=== PATIENT | male | born 1955 | race Caucasian/White ===

== ENCOUNTER 2016-11-04 05:39 | Day surgery (SDC) | payer OTHER ==
[~2016-11-04] VITALS: Ht 185.4 cm; Wt 190.1 kg
[2016-11-04 06:26] VITALS: BP 146/74; PULSE 70; RESP 18; TEMP 98.4; O2SAT 96
[2016-11-04 06:55] LABS: AUTOMATED NEUTROPHIL # 3.1 TH/MM3 (1.8-7.7); BASOPHIL % 0.7 % (0.0-2.0); EOSINOPHIL # 0.2 TH/MM3 (0-0.4); EOSINOPHIL % 4.2 % (0.0-4.0); HEMATOCRIT 40.1 % (39.0-51.0); HEMO FLAGS DIFF FINAL; LYMPH % 25.6 % (9.0-44.0); LYMPHOCYTE # 1.3 TH/MM3 (1.0-4.8); MEAN CORPUSCULAR HEMOGLOBIN 30.7 PG (27.0-34.0); MEAN CORPUSCULAR HGB CONC 34.1 % (32.0-36.0); MONO % 9.8 % (0.0-8.0); NEUT % 59.7 % (16.0-70.0); PLATELET COUNT 178 TH/MM3 (150-450); RED BLOOD COUNT 4.45 MIL/MM3 (4.50-5.90); RED CELL DISTRIBUTION WIDTH 14.9 % (11.6-17.2); WHITE BLOOD COUNT 5.1 TH/MM3 (4.0-11.0)
[2016-11-04] MEDS ORDERED: DICL75TA PO (07:06)
[2016-11-04] MEDS ORDERED: VALS160T4 PO (07:06)
[2016-11-04] MEDS ORDERED: ASPI81TA67 PO (07:06)
[2016-11-04] MEDS ORDERED: PRAV20TA2 PO (07:06)
[2016-11-04] MEDS ORDERED: ALLO300T2 PO (07:06)
[2016-11-04] MEDS ORDERED: NIAC500T52 PO (07:06)
[2016-11-04 07:08] LABS: APTT (PATIENT) 27.3 SEC (24.3-30.1); PROTHROMBIN TIME - PATIENT 11.1 SEC (9.8-11.6)
[2016-11-04 07:28] LABS: BICARBONATE 27.6 MEQ/L (21.0-32.0); POTASSIUM 3.9 MEQ/L (3.5-5.1)
--- NOTE | 2016-11-04 07:31 | EKG ---
Date Performed: 11/04/2016 Time Performed: 06:37:00 PTAGE: 61 years EKG: Sinus rhythm with borderline 1st degree A-V block. Poor R wave progression - probable normal variant Borderline E CG NO PREVIOUS TRACING DOCTOR: Sergei Peres Interpretating Date/Time 11/04/2016 07:31:27
[2016-11-04] MEDS ORDERED: HEPARIN-NS/PF INJ 500 ML ONE (09:02)
[2016-11-04] MEDS ORDERED: MIDAZOLAM HCL 5 MG/5 ML VIAL ONE (09:03)
--- NOTE | 2016-11-04 09:50 | CATHPROC ---
[employer] HIS Report Study Information Study Number Scheduled Start Study Start 0927-17 11/04/2016 Nov 04 2016 8:51AM Referring Institution Admit Source Facility Department 1 Other [facility] - Network Operations Technician Physician and Clinical Staff Initial Lukas Mart Passenger Car Inspector [employer]ak RN, Lane Matta RCIS(BS) Scrub Berta Kinney,RT(R) Procedures Performed Procedure Location (Site) Vessel Name Angiogram LV LV Ventricle Coronary Angiograms LCA Left Coronary Coronary Angiograms RCA Right Coronary L Heart Cath Equipment Time Data Migration Lead Description Size Mfg Part Number Used/Scraped TRANSDUCER, TRUWAVE 08:54 Buy.On.Social * [id number] Used W/STOCKCOCK [id number] *[id number] [id number] *[id number] [id number] *[id number] 08:54 MEDLINE INDUSTRIES PACK, CCL CUSTOM * Used *[id number] 08:54 MEDLINE PACER PEN, SKIN DUAL W/ RULER * [id number] Used 08:54 Payfirma WIRE, 3MMJ .035 180CM 180CM [id number] Used PROBE COVER, STERILE 08:54 Cool Containers * [id number] Used ULTRASOUND W/ GEL [id number] 08:54 NAMIC MANIFOLD, 4 PORT * Used *[id number] 08:54 NAMIC TUBING, HIGH PRESSURE 48" 48" Used *[id number] 08:54 NYCOMED OMNIPAQUE, 350 MG, 100ML 100ML [id number] Used 09:32 NYCOMED OMNIPAQUE, 350 MG, 50ML 50ML [id number] Used 08:54 VERDIN MEDICAL BLANKET,WARM AIR CCL * [id number] Used 08:54 TERUMO MEDICAL SHEATH, FR5 TERUMO (10CM) FR 5 [id number] Used History: Current Medications Medication Dosage/Unit Route Frequency Last Date/Time Taken ASA Statins (any) Allopurinol History: Allergies Allergy Reaction No Known Allergies History: Risk Factors Family History of Hypertension Dyslipidemia Previous [place] Previous Heart Failure Premature CAD Yes Yes Yes No No Prior Valve Prior PCI Prior CABG Surgery No No No Cerebrovascular Peripheral Artery Chronic Lung On Dialysis Diabetes Disease Disease Disease No No No No No History: Stress Tests Stress or Imaging Studies Performed Yes Standard Exercise Stress Test No Stress Echo No Stress Test SPECT Stress Test SPECT Result Stress Test SPECT Ischemia Risk/Extent Yes Positive Intermediate Stress Test CMR No Cardiac CTA Coronary Calcium Score No No History: Other Current Smoker No Labs Hgb (g/dl) Hct (%) RBC (MIL/MM3) WBC (l/cumm) Platelets (thousands) 12.00-18.00 37.00-55.00 4.80-6.20 4.80-10.80 140.00-450.00 13.7 40.1 4.4 5.1 178 Glucose (mg/dl) BUN (mg/dl) Creatinine (mg/dl) BUN:Creatinine (1:x) 60.00-110.00 8.00-20.00 0.10-9.00 10.00-20.00 94 17 0.8 21.3 Na (meq/l) K (meq/l) Cl (meq/l) CO2 (mmol/L) Ca (mg/dl) 138.00-146.00 3.80-5.10 101.00-111.00 23.00-30.00 9.00-10.50 144 3.9 109 27.6 8.8 PT (sec) PTT (sec) INR (PTT:PT) 9.40-11.40 25.10-32.70 0.50-2.00 11.1 27.3 1 CPK-MB (ng/ML) 0.00-7.00 Not Drawn Medication Medication Total Dose (Bolus/Oral) Medication Total Dosage/Unit 1% XYLOCAINE 20 mL FENTANYL 50 mcg VERSED 3 mg Medications (Bolus/Oral) Medication Time Given Dosage/Unit Administered By Reason VERSED 11/04/2016 9:27:02 AM 2 mg Mario Candelario RN 2 mg VERSED given in lab by Mario Candelario RN in Left Antecubital via Peripheral IV. 1% XYLOCAINE 11/04/2016 9:27:34 AM 20 mL Lukas Fernandez 20 mL 1% XYLOCAINE given in lab by Lukas Fernandez in Right Groin via Subcutaneous. FENTANYL 11/04/2016 9:28:02 AM 50 mcg Mario Candelario RN 50 mcg FENTANYL given in lab by Mario Candelario RN in Left Antecubital via Peripheral IV. VERSED 11/04/2016 9:29:38 AM 1 mg Mario Candelario RN 1 mg VERSED given in lab by Mario Candelario RN in Left Antecubital via Peripheral IV. Medication (Drip) Medication Time Given Dosage/Unit Concentration/Unit Diluent (ml) Solution IV Solutions 11/04/2016 8:58:54 AM 0 mL (IV) 500 NaCl .9 IV Solutions given in lab by Mario Candelario RN in Left Antecubital via Peripheral IV. Pump/Drip Flow = 20 ml/hr using NaCl .9. Initial Case Assessment Cardiovascular HR Rhythm NIBP Chest Pain 58 sinus 156/91 0 Edema Present Skin color Skin None Normal Warm Dry Circulatory - Right Pulses Dorsalis Pedis Femoral 1 1 Scale (0,1,2,3,4,d) Circulatory - Left Pulses Dorsalis Pedis Femoral 1 1 Scale (0,1,2,3,4,d) Neurological State Oriented to time-place- Alert Moves all extremities person Respiration - General SpO2 (%) O2 (lpm) 99 2 Initial Case Assessment Cardiovascular HR Rhythm NIBP Chest Pain 69 sinus 155/94 0 Edema Present Skin color Skin None Normal Warm Dry Circulatory - Right Pulses Dorsalis Pedis Femoral 1 1 Scale (0,1,2,3,4,d) Circulatory - Left Pulses Dorsalis Pedis Femoral 1 1 Scale (0,1,2,3,4,d) Neurological State Oriented to time-place- Alert Moves all extremities person Respiration - General SpO2 (%) O2 (lpm) 99 2 Chronological Log Time Study Chronological Log 8:55:07 Patient arrived via Bed. 8:55:08 Patient Name, D.O.B, / Armband Verified By R.N. 8:55:09 Consent signed by the physician and the patient and verified by the Network Operations Technician staff. 8:55:10 Pre-op and post- op instructions given; patient acknowledges understanding of instructions. 8:55:11 Verbal Stimulation=2 Physical Stimulation=2 Airway=2 Respiration=2 TOTAL=8. (0=absent, 1=li mited, 2=present) 8:58:16 Presedation assessment performed by Network Operations Technician RN. 8:58:22 Patient has been NPO for More than 6Hrs. 8:58:23 Skin Breakdown- none per patient. 8:58:34 Patient Warmer Placed on the Table. 8:58:37 Alysa Prominences Protected 8:58:38 A # 20 IV was noted in the Antecubital (left). Grade = 0 IV Solutions given in lab by Mario Candelario RN in Left Antecubital via Peripheral IV. Pump/Drip F low = 20 ml/hr using NaCl 8:58:54 .9. 8:59:20 History and physical on the chart or being dictated. Assessment: Initial Case, HR=58 BPM, Rhythm=sinus, MDFU=523/91 mmhg, Chest Pain=0, Edema=None, Color=Normal, Skin = Warm, Dry Right Pulses: Jaya Ped=1, Femoral=1 8:59:21 Left Pulses: Jaya Ped=1, Femoral=1 Neurological: State=Alert, Ox3, GORE Respiration: SpO2=99 %, O2=2 lpm Vitals capture started with the following parameters, Patient=Adult, Interval=5 min, Initial Pre xkejc=587 mmHg, 8:59:25 Deflation Rate=5 mmHg 9:00:42 OXNU=523/83 mmhg, SpO2=99.0 %, Pain=0, Dinorah=10, Moreira=2 9:05:43 HR=59 bpm, GKSK=527/91 mmhg, BmT2=587.0 %, Resp=14 B/min, Pain=0, Dinorah=10, Moreira=2 9:06:17 Reference ECG taken 9:10:11 HR=58 bpm, ZRAU=128/91 mmhg, SpO2=99.0 %, Resp=15 B/min, Pain=0, Dinorah=10, Moreira=2 9:10:49 Right groin prepped with 2% chlorhexidine, and with a 3 min. waiting time. 9:13:12 MD arrived. 9:15:08 FB=477 bpm, JPFK=837/95 mmhg, SpO2=99.0 %, Resp=18 B/min, Pain=0, Dinorah=10, Moreira=2 9:15:52 Contrast Scanned 9:15:53 Immediate Presedation assesment performed by physician. 9:18:26 Pressure channel 1 zeroed. 9:20:42 HR=58 bpm, RXWY=628/88 mmhg, SpO2=99.0 %, Resp=10 B/min, Pain=0, Dinorah=10, Moreira=2 9:25:08 HR=59 bpm, TIJS=394/87 mmhg, SpO2=98.0 %, Resp=16 B/min, Pain=0, Dinorah=10, Moreira=2 9:27:02 2 mg VERSED given in lab by Mario Candelario RN in Left Antecubital via Peripheral IV. Time Out. Correct patient, correct procedure,correct physician, ,power injector loaded with cont rast with surgical team 9:27:09 present. Time Out Concurred by , individual staff in procedure 9:27:25 Case Start 9::26 Verbal Stimulation=2 Physical Stimulation=2 Airway=2 Respiration=2 TOTAL=8. (0=absent, 1=solomon ited, 2=present) 9:27:34 20 mL 1% XYLOCAINE given in lab by Lukas Fernandez in Right Groin via Subcutaneous. 9:28:02 50 mcg FENTANYL given in lab by Mario Candelario RN in Left Antecubital via Peripheral IV. 9::45 Access site was Right Femoral Artery. 9:28:51 A SHEATH, FR5 TERUMO (10CM) FR 5 was advanced into the Fem Art (right) using the Percutaneou s technique. A PIGTAIL ANG. INFINITI CATHETER FR 5 was advanced over a wire. OMNIPAQUE, 350 MG, 100ML 100ML w as used 9:28:58 for injections. 9:29:38 1 mg VERSED given in lab by Mario Candelario RN in Left Antecubital via Peripheral IV. 9:30:07 HR=60 bpm, DYCF=836/93 mmhg, SpO2=97.0 %, Resp=15 B/min, Pain=0, Dinorah=10, Moreira=2 9:31:27 The LV was injected at 12 cc/sec for a total of 36. OMNIPAQUE, 350 MG, 50ML 50ML used. Recorded Pressure: LV, HR=61, Condition=Condition 1 9:32:36 (Left Ventricle) LV 106/12/17 Recorded Pressure: LV, Ao, HR=61, Condition=Condition 1 9:32:40 (Left Ventricle) LV 106/13/17, (Aorta) Ao 109/71/90 9:33:03 Catheter was removed A JL 4.0 INFINITI CATHETER FR 5 was advanced over a wire. OMNIPAQUE, 350 MG, 100ML 100ML was use d for 9:33:03 injections. 9:35:02 The LCA was injected and visualized at various angles. OMNIPAQUE, 350 MG, 100ML 100ML used. 9:35:10 HR=62 bpm, ZGYK=644/87 mmhg, SpO2=96.0 %, Resp=16 B/min, Pain=0, Dinorah=10, Moreira=2 9:37:18 Catheter was removed A AR MOD INFINITI CATHETER FR 5 was advanced over a wire. OMNIPAQUE, 350 MG, 100ML 100ML was use d for 9:37:20 injections. 9:38:38 The RCA was injected and visualized at various angles. OMNIPAQUE, 350 MG, 100ML 100ML used. 9:39:28 Catheter was removed 9:39:41 Case End 9:40:09 HR=75 bpm, ZQWV=591/94 mmhg, SpO2=97.0 %, Resp=21 B/min, Pain=0, Dinorah=10, Moreira=2 Assessment: Initial Case, HR=69 BPM, Rhythm=sinus, EUKA=066/94 mmhg, Chest Pain=0, Edema=None, Color=Normal, Skin = Warm, Dry Right Pulses: Jaya Ped=1, Femoral=1 9:42:08 Left Pulses: Jaya Ped=1, Femoral=1 Neurological: State=Alert, Ox3, GORE Respiration: SpO2=99 %, O2=2 lpm 9:42:24 Sheath(s) left in place, will be removed in Holding Area 9:42:25 Sterile dressing applied to site 9:42:26 No case complications noted. 9:42:27 Cine recording checked. 9:42:29 Bedside Report will be given. 9:42:32 Verbal Stimulation=2 Physical Stimulation=2 Airway=2 Respiration=2 TOTAL=8. (0=absent, 1=l imited, 2=present) 9:42:40 A Left Heart Cath was performed. 9:46:03 Vitals capture stopped. 9:47:47 Patient moved to carrier clinic End Study - Contrast Media Used In Study Contrast Total Opened (mL) Total Used (mL) Total Wasted (mL) Omnipaque 70 70 0 End Study - Maximum Contrast Load Max Contrast Load (mL) 1188.1 End Study - Radiation Exposure Fluoro Time (minutes) 2.1 End Study - Patient Disposition Complications Transferred To Interventional Outcome No Network Operations Technician Holding No attempt made
[2016-11-04] MEDS ORDERED: IOHEXOL 350 MG/ML 100 ML BTL (for Cath Lab) OTHER ONE (10:13)
--- NOTE | 2016-11-05 19:19 | MA ---
cc: DUANE GANNON DATE: 11/05/2016. PROCEDURES PERFORMED: 1. Retrograde left heart catheterization with left ventriculography and selective coronary angiography. 2. Moderate sedation. ACCESS SITE: Right femoral artery. EQUIPMENT USED: 5-Rwandan pigtail catheter. 5-[place]an JL4 and AR modified coronary catheters. MEDICATIONS: Versed IV. Fentanyl IV. CONTRAST: Omnipaque 70 cc. COMPLICATIONS: None. METHOD OF HEMOSTASIS: Manual compression. ESTIMATED BLOOD LOSS: Less than 10 cc. INDICATIONS FOR THE PROCEDURE: Class II angina, intermediate probability nuclear myocardial perfusion study. RESULTS OF HEMODYNAMICS: Heart rate 70 beats per minute. Left ventricular end diastolic pressure 13 mmHg. Left ventricle 110/13. Aorta 110/71/90. LEFT VENTRICULOGRAPHY Left ventricular ejection fraction 60%. Wall motion normal. No mitral regurgitation. CORONARY ANGIOGRAPHY: The left main coronary artery patent The left anterior descending has 20% stenosis in the proximal portion. D1 patent. D2 patent. D3 patent. Left circumflex patent. OM #1 patent. OM #2 patent. Right coronary artery is patent. PDA has 20% stenosis in the mid portion. PLV patent. DIAGNOSIS: 1. Mild nonobstructive coronary artery disease. 2. Preserved left ventricular systolic function. DISPOSITION: Mr. Rossi can be reassured about his cardiac status. His study revealed mild nonobstructive coronary artery disease and preserved left ventricular systolic function. We will continue aggressive modification of his cardiac risk factors. He will be discharged home later today. I will see him back for followup in our office after discharge. MD BARRY Glez/ANGELIC /9:52 AM /7:11 PM POLY
== END 2016-11-04 15:19 | disposition home or self-care (01) ==
LOC: HDOC 05:39 → HDIC 05:39 → HDOC 15:19
PROVIDERS: ATTEND Internal Medicine Interventional Cardiology
DX: I25.119 Atherosclerotic heart disease of native coronary artery with unspecified angina pectoris (principal); R94.39 Abnormal result of other cardiovascular function study; E78.5 Hyperlipidemia, unspecified; R06.00 Dyspnea, unspecified; Z82.49 Family history of ischemic heart disease and other diseases of the circulatory system; Z01.818 Encounter for other preprocedural examination; Z01.810 Encounter for preprocedural cardiovascular examination
CPT/HCPCS: 80048; 85025; 85610; 85730; 93005; 93458; C1769; C1893; J1644; J2250; J3010; Q9967